=== PATIENT | female | born 2000 | race Hispanic/Latino ===

== ENCOUNTER 2019-07-11 18:55 | Emergency (ER) | payer OTHER | END 2019-07-11 19:34 | disposition home or self-care (01) | LOC: EDH 18:55 | DX: K04.7 Periapical abscess without sinus (principal) ==

== ENCOUNTER 2020-10-04 03:55 | Emergency (ER) | payer OTHER ==
[2020-10-04] MEDS ORDERED: PREDNISONE 20 MG TABLET ONE (04:22)
[2020-10-04] MEDS ORDERED: FAMOTIDINE 20MG TAB 20 MG TAB ONE (04:22)
[2020-10-04] MEDS ORDERED: DiphenhydrAMINE HCL 50 MG/ML VIAL ONE (04:22)
== END 2020-10-04 04:33 | disposition home or self-care (01) ==
LOC: EDH 03:55
DX: L50.0 Allergic urticaria (principal)
CPT/HCPCS: 96372; 99283; J1200

== ENCOUNTER 2022-03-15 07:53 | Emergency (ER) | payer OTHER ==
[~2022-03-15] VITALS: Ht 149.9 cm; Wt 54.4 kg
[2022-03-15 08:24] LABS: HEMATOCRIT 37.7 % (36-48); MEAN CORPUSCULAR HGB CONC 33.4 g/dL (32.0-36.0); MEAN CORPUSCULAR VOLUME 89.8 fL (79-99); RED BLOOD CELL COUNT(AUTO) 4.2 MIL/uL (4.00-5.50); RED CELL DISTRIBUTION WIDTH 13.2 % (11.0-15.5); WHITE BLOOD COUNT (AUTO) 9.3 K/uL (4.8-10.8)
[2022-03-15 08:33] LABS: CREATININE 0.7 mg/dL (0.5-1.5); POTASSIUM 3.6 mmol/L (3.5-5.1)
[2022-03-15 08:38] LABS: BILIRUBIN,TOTAL 0.7 mg/dL (0.2-1.0)
[2022-03-15 08:49] LABS: APPEARANCE,URINE Cloudy (CLEAR); BILIRUBIN,URINE Negative (NEGATIVE); COLOR,URINE Dark Yellow (YELLOW); GLUCOSE, URINE (UA) Negative (NEGATIVE); KETONES,URINE Trace mg/dL (NEGATIVE); LEUKOCYTE ESTERASE ,URINE Trace (NEGATIVE); NITRATE,URINE Negative (NEGATIVE); OCCULT BLOOD,URINE Negative (NEGATIVE); PROTEIN,URINE Trace mg/dL (NEGATIVE)
[2022-03-15 08:51] LABS: HCG,QUAL RESULT NEGATIVE (NEGATIVE)
[2022-03-15 09:04] LABS: BACTERIA,URINE Few /HPF (None Seen); RBC,URINE 0-1 /HPF (0-1)
[2022-03-15] MEDS ORDERED: PRED20TA3 PO (09:51)
[2022-03-15] MEDS ORDERED: ACYC-138 PO (09:51)
[2022-03-15 09:52] VITALS: BP 122/70
== END 2022-03-15 09:57 | disposition home or self-care (01) ==
LOC: EDH 07:53
DX: G51.0 Bell's palsy (principal)
CPT/HCPCS: 36415; 70450; 80053; 81001; 81025; 82948; 85027; 93005

== ENCOUNTER 2024-03-28 13:24 | Emergency (ER) | payer OTHER ==
[~2024-03-28] VITALS: Ht 147.3 cm; Wt 59.0 kg
[~2024-03-28 13:24] MED LIST: ACYC-138 PO; PRED20TA3 PO
[2024-03-28 14:28] LABS: BASOPHILS # (AUTO) 0.02 K/uL (0.00-0.20); BASOPHILS % (AUTO) 0.2 % (0.0-5.0); EOSINOPHILS # (AUTO) 0.03 K/uL (0.00-0.70); EOSINOPHILS % (AUTO) 0.4 % (0.0-8.0); HEMATOCRIT 37.2 % (36-48); IMMATURE GRANULOCYTE ABSOLUTE 0.03 K/uL (0-1); LYMPHOCYTES # (AUTO) 2.2 K/uL (1.0-4.8); LYMPHOCYTES % (AUTO) 26.6 % (21.0-51.0); MEAN CORPUSCULAR HEMOGLOBIN 30.8 pg (27.0-33.0); MEAN CORPUSCULAR HGB CONC 34.4 g/dL (32.0-36.0); MEAN CORPUSCULAR VOLUME 89.4 fL (79-99); MONOCYTES # (AUTO) 0.6 K/uL (0.1-1.0); MONOCYTES % (AUTO) 7.6 % (3.0-13.0); NEUTROPHILS # (AUTO) 5.3 K/uL (1.8-7.7); NEUTROPHILS % (AUTO) 64.8 % (40.0-77.0); PLATELET COUNT (AUTO) 262 K/uL (130-400); RED BLOOD CELL COUNT(AUTO) 4.16 MIL/uL (4.00-5.50); RED CELL DISTRIBUTION WIDTH 13.1 % (11.0-15.5); WHITE BLOOD COUNT (AUTO) 8.2 K/uL (4.8-10.8)
[2024-03-28 14:33] LABS: CREATININE 0.6 mg/dL (0.5-1.0); POTASSIUM 3.8 mmol/L (3.5-5.1)
[2024-03-28 16:09] VITALS: BP 114/51; PULSE 77; RESP 18; O2SAT 100
== END 2024-03-28 16:10 | disposition home or self-care (01) ==
LOC: EDH 13:24
DX: O20.0 Threatened abortion (principal); O26.891 Other specified pregnancy related conditions, first trimester; R10.2 Pelvic and perineal pain; Z3A.01 Less than 8 weeks gestation of pregnancy
CPT/HCPCS: 36415; 76801; 80048; 81025; 84702; 85025; 86850; 86900; 86901